=== PATIENT | female | born 1980 | race Caucasian/White ===

== ENCOUNTER 2018-05-09 13:19 | Emergency (ER) | payer MEDICAID ==
[~2018-05-09] VITALS: Ht 175.3 cm; Wt 54.7 kg
[2018-05-09] MEDS ORDERED: ONDANSETRON ODT 4 MG PO ONE (14:00)
[2018-05-09] MEDS ORDERED: KETOROLAC 30 MG/1 ML IM ONE (14:00)
[2018-05-09 14:14] LABS: BASOPHILS # (AUTO) 0.05 x10^3/uL (0-0.1); BASOPHILS % (AUTO) 1 % (0-1); EOSINOPHILS # (AUTO) 0.12 x10^3/uL (0-0.4); EOSINOPHILS % (AUTO) 1 % (1-7); LYMPHOCYTES # (AUTO) 1.84 x10^3/uL (1-3.4); LYMPHOCYTES % (AUTO) 18 % (22-44); MD NO; MEAN CORPUSCULAR HEMOGLOBIN 29.8 pg (27.0-34.8); MEAN CORPUSCULAR VOLUME 87.5 fL (80-100); MEAN PLATELET VOLUME 8.2 fL (7.4-10.4); MONOCYTES # (AUTO) 0.53 x10^3/uL (0.2-0.8); MONOCYTES % (AUTO) 5 % (2-9); NEUTROPHILS # (AUTO) 7.55 x10^3/uL (1.8-6.8); NEUTROPHILS % (AUTO) 75 % (42-75); PLATELET COUNT 297 x10^3/uL (130-400); RED BLOOD COUNT 4.99 x10^6/uL (3.82-5.3); RED CELL DISTRIBUTION WIDTH 12.9 % (9.6-15.2)
[2018-05-09 14:27] LABS: ALBUMIN 3.9 g/dL (3.4-5.0); ANION GAP 10 mmol/L (5-15); CALCIUM 8.9 mg/dL (8.5-10.1); CHLORIDE 107 mmol/L (98-107); CREATININE 1.22 mg/dL (0.55-1.02)
[2018-05-09] MEDS ORDERED: SODIUM CHLORIDE 0.9% 1,000ML IVBOLUS ONE (15:00)
[2018-05-09 15:43] LABS: MICROSCOPIC AUTO
[2018-05-09 15:46] LABS: CULTURE INDICATED? NO
[2018-05-09 16:30] VITALS: BP 134/89
== END 2018-05-09 16:32 | disposition home or self-care (01) ==
LOC: ED 15:50
DX: S39.012A Strain of muscle, fascia and tendon of lower back, initial encounter (principal); X58.XXXA Exposure to other specified factors, initial encounter; Y93.89 Activity, other specified; Y99.8 Other external cause status; Y92.89 Other specified places as the place of occurrence of the external cause
CPT/HCPCS: 36415; 80048; 81001; 82040; 84703; 85025; 96372; 99284; J1885; J7030; Q0162

== ENCOUNTER 2020-05-17 15:21 | Inpatient (IN) | payer MEDICAID ==
[~2020-05-17] VITALS: Ht 175.3 cm; Wt 77.3 kg
[2020-05-17] VITALS: BP 120/75
[2020-05-17] MEDS ORDERED: LACTATED RINGERS 1,000 ML IV SCH (15:33)
[2020-05-17] MEDS ORDERED: OXYTOCIN 30U/ 0.9% NaCL 500ML 500 ML IV ONE (15:33)
[2020-05-17] MEDS ORDERED: D5%-LACTATED RINGERS 1,000 ML IV SCH (15:33)
[2020-05-17] MEDS ORDERED: PENICILLIN GK 5,000,000 UNITS in DEXTROSE 5% 100 ML IVPB ONE (16:00)
[2020-05-17] MEDS ORDERED: FENTANYL PF 100 MCG/2ML IVPush PRN (16:00)
[2020-05-17] MEDS ORDERED: TERBUTALINE 1 MG/ML, 1ML SQ PRN (16:00)
[2020-05-17] MEDS ORDERED: FENTANYL PF 100 MCG/2ML IV PRN (16:00)
[2020-05-17] MEDS ORDERED: TERBUTALINE 1 MG/ML, 1ML IVPush PRN (16:00)
[2020-05-17] MEDS ORDERED: ONDANSETRON 2MG/ML, 2ML IVPush PRN (16:00)
[2020-05-17] MEDS ORDERED: OXYTOCIN 30U/ 0.9% NaCL 500ML 500 ML ONE (16:13)
[2020-05-17] MEDS ORDERED: LIDOCAINE 1%, 20ML ONE (16:13)
[2020-05-17] MEDS ORDERED: MISOPROSTOL 200 MCG TABLET ONE (16:13)
[2020-05-17] MEDS ORDERED: NEWBORN KIT ONE (16:13)
[2020-05-17] MEDS ORDERED: FENTANYL PF 100 MCG/2ML ONE (16:17)
[2020-05-17 16:22] LABS: MEAN CORPUSCULAR HEMOGLOBIN 28.5 pg (27.0-34.8); MEAN CORPUSCULAR HGB CONC 32.7 g/dL (32.4-35.8); MEAN CORPUSCULAR VOLUME 87.2 fL (80-100); MEAN PLATELET VOLUME 8.6 fL (7.4-10.4); PLATELET COUNT 252 x10^3/uL (130-400); RED BLOOD COUNT 4.03 x10^6/uL (3.82-5.3); RED CELL DISTRIBUTION WIDTH 13.9 % (9.6-15.2)
[2020-05-17 16:41] LABS: MD YES
[2020-05-17 16:43] LABS: BAND#(MANUAL) 1.34 x10^3/uL; BANDS%(MANUAL) 7 % (0-7); EOS#(MANUAL) 0.58 x10^3/uL (0.0-0.4); EOS% (MANUAL) 3 % (1-7); LYMPH#(MANUAL) 4.42 x10^3/uL (1-3.4); LYMPHS% (MANUAL) 23 % (22-44); MONOS#(MANUAL) 0.58 x10^3/uL (0.3-2.7); MONOS% (MANUAL) 3 % (2-9); SEG#(MANUAL) 12.29 x10^3/uL (1.8-6.8); SEGS% (MANUAL) 64 % (42-75)
[2020-05-17 16:44] LABS: <PLATELET ESTIMATE> ADEQUATE; <PLT MORPHOLOGY> NORMAL PLT MORPH; <RBC MORPHOLOGY> NORMAL
[2020-05-17] MEDS ORDERED: OXYTOCIN 10 UNITS/ML, 1ML ONE (17:14)
[2020-05-17 17:27] VITALS: BP 139/93
[2020-05-17] MEDS: OXYTOCIN 30U/ 0.9% NaCL 500ML 500 ML IV SCH (17:47)
[2020-05-17 17:51] LABS: AMPHETAMINE SCREEN, URINE Positive (Negative); BARBITURATE SCREEN, URINE Negative (Negative); BENZODIAZEPINE SCREEN, URINE Negative (Negative); CANNABINOID SCREEN, URINE Positive (Negative); COCAINE SCREEN, URINE Negative (Negative); METHADONE SCREEN, URINE Negative (Negative); OPIATE SCREEN, URINE Negative (Negative)
[2020-05-17] MEDS ORDERED: IBUPROFEN 600 MG TABLET ONE (17:56)
[2020-05-17] MEDS: IBUPROFEN 600 MG TABLET PO PRN ×2 (17:58→18:45)
[2020-05-17] MEDS ORDERED: BISACODYL 10 MG SUPP PR PRN (18:00)
[2020-05-17] MEDS ORDERED: SIMETHICONE 80 MG CHEW TAB PO PRN (18:00)
[2020-05-17] MEDS ORDERED: MISOPROSTOL 200 MCG TABLET PR PRN (18:00)
[2020-05-17] MEDS ORDERED: METHYLERGONOVINE 0.2 MG/ML IM PRN (18:00)
[2020-05-17] MEDS ORDERED: HYDROcodone/APAP 5/325 TABLET PO PRN (18:00)
[2020-05-17] MEDS ORDERED: OXYTOCIN 10 UNITS/ML, 1ML IM PRN (18:00)
[2020-05-17] MEDS ORDERED: DIPH,PERTUSS(ACELL),TET VAC/PF NC IM-VACC PRN (18:00)
[2020-05-17] MEDS ORDERED: RHOGAM FROM BLOOD BANK 1 NOTE EA IM/IV ONE (18:00)
[2020-05-17] MEDS ORDERED: GLYCERIN ADULT SUPP PR PRN (18:00)
[2020-05-17] MEDS ORDERED: MEASLES,MUMPS&RUBELLA VACC/PF 0.5 ML SQ-VACC PRN (18:00)
[2020-05-17] MEDS ORDERED: ONDANSETRON 2MG/ML, 2ML IV PRN (18:00)
[2020-05-17 19:24] VITALS: BP 118/77
[2020-05-17] MEDS ORDERED: PENICILLIN GK 2,500,000 UNITS in DEXTROSE 5% 100 ML IVPB SCH (20:00)
[2020-05-17] MEDS: HYDROcodone/APAP 5/325 TABLET PO PRN (23:12)
[2020-05-17] MEDS: NICOTINE 14MG/24 HR PATCH.TD24 TD SCH (23:13)
[2020-05-18] VITALS: BP 120/75
[2020-05-18] MEDS: IBUPROFEN 600 MG TABLET PO PRN ×3 (02:58→21:16)
[2020-05-18] MEDS: OXYTOCIN 30U/ 0.9% NaCL 500ML 500 ML IV SCH ×3 (03:47→23:47)
[2020-05-18] MEDS: HYDROcodone/APAP 5/325 TABLET PO PRN ×4 (03:54→21:16)
[2020-05-18 04:00] VITALS: BP 113/80
[2020-05-18 05:26] LABS: MEAN CORPUSCULAR HEMOGLOBIN 28.4 pg (27.0-34.8); MEAN CORPUSCULAR HGB CONC 32.4 g/dL (32.4-35.8); MEAN CORPUSCULAR VOLUME 87.7 fL (80-100); MEAN PLATELET VOLUME 8.2 fL (7.4-10.4); PLATELET COUNT 312 x10^3/uL (130-400); RED BLOOD COUNT 3.69 x10^6/uL (3.82-5.3); RED CELL DISTRIBUTION WIDTH 14.7 % (9.6-15.2)
[2020-05-18 06:02] LABS: MD YES
[2020-05-18 06:05] LABS: <PLATELET ESTIMATE> ADEQUATE; <PLT MORPHOLOGY> NORMAL PLT MORPH; <RBC MORPHOLOGY> NORMAL; BAND#(MANUAL) 0.68 x10^3/uL; BANDS%(MANUAL) 4 % (0-7); EOS#(MANUAL) 0.34 x10^3/uL (0.0-0.4); EOS% (MANUAL) 2 % (1-7); LYMPH#(MANUAL) 2.72 x10^3/uL (1-3.4); LYMPHS% (MANUAL) 16 % (22-44); METAMYELOCYTES# (MANUAL) 0.17 x10^3/uL (0-0); METAMYELOCYTES% (MANUAL) 1 % (0-1); MONOS#(MANUAL) 0.51 x10^3/uL (0.3-2.7); MONOS% (MANUAL) 3 % (2-9); MYELOCYTES# (MANUAL) 0.17 x10^3/uL (0-0); MYELOCYTES% (MANUAL) 1 % (0-0); SEG#(MANUAL) 12.41 x10^3/uL (1.8-6.8); SEGS% (MANUAL) 73 % (42-75)
[2020-05-18 07:16] VITALS: BP 119/79
[2020-05-18] MEDS: PRENATAL VIT/IRON/FA 1 EACH TABLET PO SCH (08:51)
[2020-05-18 12:13] VITALS: BP 116/81
[2020-05-18] MEDS ORDERED: BICILLIN-LA 2,400,000 UNITS/4 ML IM ONE (18:00)
[2020-05-18] MEDS ORDERED: AZITHROMYCIN 500 MG TABLET PO ONE (18:00)
[2020-05-18] MEDS ORDERED: CEFTRIAXONE 250 MG IM ONE ×2 (18:00→19:30)
[2020-05-18 20:00] VITALS: BP 151/86
[2020-05-18] MEDS ORDERED: LIDOCAINE-MPF 1%, 2ML ONE (20:54)
[2020-05-18] MEDS: DOCUSATE 100 MG CAPSULE PO PRN (21:15)
[2020-05-18 22:29] VITALS: BP 106/68
[2020-05-19] MEDS: NICOTINE 14MG/24 HR PATCH.TD24 TD SCH (00:10)
[2020-05-19 08:05] VITALS: BP 113/79
[2020-05-19] MEDS: OXYTOCIN 30U/ 0.9% NaCL 500ML 500 ML IV SCH (09:47)
[2020-05-19] MEDS: PRENATAL VIT/IRON/FA 1 EACH TABLET PO SCH (09:48)
[2020-05-19] MEDS: HYDROcodone/APAP 5/325 TABLET PO PRN ×2 (09:48→17:37)
[2020-05-19] MEDS: IBUPROFEN 600 MG TABLET PO PRN ×2 (09:48→17:36)
[2020-05-19] MEDS: DOCUSATE 100 MG CAPSULE PO PRN (09:49)
[2020-05-19 20:32] VITALS: BP 128/85
== END 2020-05-19 22:01 | disposition home or self-care (01) | DRG 806 ==
LOC: LDOP 15:21 → LDIP 16:11 → 2NW 19:20
PROVIDERS: ADMIT Obstetrics & Gynecology; ATTEND Obstetrics & Gynecology
PROC: 10E0XZZ Delivery of Products of Conception, External Approach (ICD-10-PCS; principal; 2020-05-17)
DX: O69.81X0 Labor and delivery complicated by cord around neck, without compression, not applicable or unspecified (principal); O99.324 Drug use complicating childbirth; Z37.0 Single live birth; F12.90 Cannabis use, unspecified, uncomplicated; Z3A.37 37 weeks gestation of pregnancy; Z20.828 Contact with and (suspected) exposure to other viral communicable diseases
CPT/HCPCS: 36415; 87806; J7121; 80307; 82803; 85025; 86592; 86762; 86780; 86850; 86900; 87340; 87635; 88307; G0378; J0561; J0696; J2540; J3010; G0475; J2590